=== PATIENT | female | born 1990 | race Caucasian/White ===

== ENCOUNTER 2019-01-11 18:35 | Emergency (ER) | payer OTHER ==
[~2019-01-11] VITALS: Ht 162.6 cm; Wt 70.3 kg
[2019-01-11 18:35] VITALS: BP 155/97
--- NOTE | 2019-01-11 18:35 | NUR ---
ARRIVAL: 28 YEAR OLD FEMALE BROUGHT INTO ER BY [facility]. SUICIDE ATTEMPT, APPROX 4 INCH LACERATION TO LEFT LATERAL FORARM. [facility] [employer] WITH PATIENT.
[2019-01-11 19:03] VITALS: BP 155/97
[2019-01-11 19:17] VITALS: BP 148/97
[2019-01-11 19:21] LABS: BILIRUBIN,URINE NEGATIVE (NEGATIVE); UROBILINOGEN,URINE NORMAL (NEGATIVE)
[2019-01-11 19:24] LABS: APPEARANCE,URINE CLEAR (CLEAR); UA COLOR STRAW (YELLOW)
[2019-01-11] MEDS ORDERED: LIDOCAINE 1% VIAL ONE (19:31)
[2019-01-11 19:34] LABS: BASOPHIL % 0.4 % (0.0-0.2); EOSINOPHIL # 0.1 10^3/uL (0.0-0.2); EOSINOPHIL % 1.1 % (0.0-5.0); LYMPHOCYTES # 2.6 10^3/uL (1.0-4.8); MEAN CORP HGB 31.6 pg (26-34); MONOCYTES # 0.5 10^3/uL (0.3-0.8); MONOCYTES % 5.6 % (5.0-12.0); NEUTROPHIL # 4.9 10^3/uL (1.8-7.7); NEUTROPHILS % 60.2 % (41.0-85.0); RED CELL DISTRIBUTION WIDTH 12.1 % (11.5-14.5)
--- NOTE | 2019-01-11 19:43 | PCM.EKG ---
[facility] Test Date: 2019-01-11 Test Time: 19:44:38 Pat Name: CATALINA BARFIELD Department: [id number] Room: Gender: F Practical Nurse: AURA : 1990 Requested By: LIZBETH AYALA Order Number: [id number] Reading MD: Jamarcus Paniagua Measurements Intervals [place] Rate: 87 P: 81 [place]: 176 QRS: 95 QRSD: 86 T: 67 QT: 342 QTc: 411 Interpretive Statements Normal sinus rhythm Normal ECG No previous ECG available for comparison Electronically Signed On 01-25-2019 10:47:01 CDT by Jamarcus Paniagua Please click the below link to view image of tracing.
--- NOTE | 2019-01-11 19:45 | ER.PDOC ---
General Chief Complaint: Suicide Attempt Stated Complaint: SI Time seen by MD: 19:20 Source: patient Exam Limitations: no limitations History of Present Illness Initial Comments pt state she has been having suicidal thoughts , which are gone now , pt states she lacerated her L wrist and is UTD on her tetanus , pt denies any HI , visual or auditory hallucinations Timing/Duration: this afternoon, gone now Severity: moderate Associated Symptoms: Suicidal Thoughts Mechanism: Incised/Abraded Wrist Prior symptoms/Treatment: Similar symptoms previous Past Medical History Medical History: no pertinent history Surgical History: cholecystectomy LMP (females 10-50): 1 month Social History Smoking: non-smoker Alcohol Use: heavy Drug Use: none Physical Exam General Appearance: No acute distress (crying) EENT: PERRLA, EOM's intact Neck: Non-Tender, Full Range of Motion Respiratory: chest non-tender, lungs clear, normal breath sounds, no respiratory distress Cardiovascular: Normal Peripheral Pulses, Regular Rate, Rhythm, No Edema Gastrointestinal: Normal Bowel Sounds, No Organomegaly, No Pulsatile Mass, Non Tender, Absent bowel sounds Extremities: Normal Range of Motion, Other (Lt wrist laceration noted ) Neurological/Psychiatric: 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, 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 as Tested Appearance/Memory/Insight: Appropriate Appearance Behavior/Eye Contact/Speech: Cooperative, Normal Speech Thoughts/Hallucinations: Normal Thought Pattern, No Apparent Hallucination, Auditory Hallucinations Skin: Normal Color, Warm/Dry ED LACERATION WOUND REPAIR # of Wounds/Lacerations Presen: 1 Wound Location & Length (Requi: L forearm Wound Length (cm): 6 Wound cleaned: betadine Distal NVT: neuro intact Anesthesia type: local (lidocaine 1% ) Anesthesia: 1% Lidocaine Wound's Depth, Shape: superficial Wound Explored: clean Tendon Intact: Yes Wound Repaired With: sutures Suture Size/Type: 4:0, ethilon Suture Style: interupted Number of Sutures: 8 Sterile Dressing Applied?: Yes Results/Orders Results/Orders Orders - LIZBETH AYALA MD Cbc With Auto Diff (01/11/19 19:17) Comprehensive Metabolic Panel (01/11/19 19:17) Creatine Kinase (01/11/19 19:17) Troponin I (01/11/19 19:17) Urinalysis (01/11/19 19:17) Salicylate(Ml) (01/11/19 19:17) Acetaminophen(Ml) (01/11/19 19:17) Alcohol(Ml) (01/11/19 19:17) Hcg, Quantitative (01/11/19 19:17) Ekg-Routine (01/11/19 19:17) Drug Screen Medical(Ml) (01/11/19 19:17) Lidocaine Hcl (Lidocaine 1% Vial) (01/11/19 19:31) Acetaminophen (Tylenol) (01/11/19 23:49) Acetaminophen (Tylenol) (01/11/19 23:51) Vital Signs Date Time Temp Pulse Resp B/P (MAP) Pulse Ox O2 Delivery O2 Flow Rate FiO2 01/12/19 01:05 98.3 80 16 120/76 (91) Room Air 01/11/19 22:51 102 18 135/85 (102) Room Air 01/11/19 20:18 103 18 140/89 (106) Room Air 01/11/19 19:17 98.1 113 20 148/97 (114) Room Air 01/11/19 19:03 98.1 106 20 155/97 (116) Room Air 01/11/19 18:35 98.1 106 20 98 Room Air 01/11/19 18:35 98.1 106 20 155/97 (116) 98 Room Air Administered Medications Medications (Trade) Dose Ordered Sig/Adiel Route PRN Reason Start Time Stop Time Status Last Admin Dose Admin Acetaminophen (Tylenol) 1,000 mg STAT STAT PO 01/11/19 23:51 01/11/19 23:52 DC 01/11/19 23:53 1,000 MG Laboratory Tests Test 01/11/19 19:10 01/11/19 19:26 Urine Collection Type VOID Urine Color STRAW (YELLOW) Urine Appearance CLEAR (CLEAR) Urine Bilirubin NEGATIVE MG/DL (NEGATIVE) Urine Ketones NEGATIVE (NEGATIVE) Urine Specific [place] 1.005 (1.005-1.035) Urine pH 6 (5.0-6.0) Urine Protein NEGATIVE (NEGATIVE) Urine Urobilinogen NORMAL (NEGATIVE) Urine Nitrate NEGATIVE (NEGATAIVE) Urine Leukocyte Esterase NEGATIVE (NEGATIVE) Urine Blood NEGATIVE (NEGATIVE) Urine Glucose NORMAL (NEGATIVE) Urine Opiates, Qualitative NEGATIVE ng/mL (CUT-OFF:300) Urine Methadone, Qualitative NEGATIVE ng/mL (CUT-OFF:300) Urine Amphetamine Qualitative NEGATIVE ng/mL (CUTOFF:1000) Urine Barbiturates, Qualitative NEGATIVE ng/mL (CUT-OFF:200) Urine Phencyclidine Screen NEGATIVE ng/mL (CUT-OFF:25) Urine MDMA (Ecstasy), Qualitative NEGATIVE ng/mL (CUT-OFF:300) Urine Benzodiazepines Screen NEGATIVE ng/mL (CUT-OFF:200) Urine Cocaine Qualitative NEGATIVE ng/mL (CUT-OFF:300) Ur Tetrahydrocannabinol (THC) Scrn NEGATIVE ng/mL (CUT-OFF:50) White Blood Count 8.2 10^3/uL (4.5-11.0) Red Blood Count 4.74 10^6/uL (4.00-5.20) Hemoglobin 15.0 g/dL (12.0-15.0) Hematocrit 41.5 % (36.0-46.0) Mean Corpuscular Volume 87.6 fL (78-100) Mean Corpuscular Hemoglobin 31.6 pg (26-34) Mean Corpuscular Hemoglobin Concent 36.1 g/dL (33-37) Red Cell Distribution Width 12.1 % (11.5-14.5) Platelet Count 417 10^3/uL (150-400) H Mean Platelet Volume 9.9 fL (7.8-11.0) Neutrophils (%) (Auto) 60.2 % (41.0-85.0) Lymphocytes (%) (Auto) 32.0 % (24.0-44.0) Monocytes (%) (Auto) 5.6 % (5.0-12.0) Neutrophils # (Auto) 4.9 10^3/uL (1.8-7.7) Lymphocytes # (Auto) 2.6 10^3/uL (1.0-4.8) Monocytes # (Auto) 0.5 10^3/uL (0.3-0.8) Absolute Immature Granulocyte (auto 0.06 10^3 u/L (0-2) Immature Granulocytes % 0.70 % (0.00-0.50) H Eosinophils % 1.1 % (0.0-5.0) Basophils % 0.4 % (0.0-0.2) H Basophils # 0.0 10^3/uL (0.0-0.1) Eosinophil Count 0.1 10^3/uL (0.0-0.2) Sodium Level 146 mmol/L (132-145) H Potassium Level 3.9 mmol/L (3.6-5.2) Chloride Level 109.0 mmol/L (96-109) Carbon Dioxide Level 23.6 mmol/L (20.0-32) Anion Gap 17.3 Blood Urea Nitrogen 8 mg/dL (7-18) Creatinine 0.85 mg/dL (0.59-1.40) Estimated GFR () 97.8 (>/=60) BUN/Creatinine Ratio 9.0 Glucose Level 106 mg/dL (70-110) Calcium Level 9.4 mg/dL (8.4-10.5) Total Bilirubin 0.2 mg/dL (0.2-1.0) Aspartate Amino Transferase (AST) 18 U/L (0-35) Alanine Aminotransferase (ALT) 37 U/L (12-78) Alkaline Phosphatase 72 U/L (50-136) Total Creatine Kinase 71 U/L (26-192) Troponin I < 0.02 ng/mL (0.00-0.05) Total Protein 7.9 g/dL (6.4-8.2) Albumin 4.2 g/dL (3.4-5.0) Globulin 3.7 Human Chorionic Gonadotropin, Quant < 5 mIU/mL Salicylates Level < 2.8 mg/dL (2.8-20.0) L Acetaminophen Level < 2 ug/mL (10-30) L Serum Alcohol 168 mg/dL (0-50) H Progress Progress labs reviewed , pt is medically cleared , placement is pending at this time @[id number] Notified by Nurse pt will not be a direct admit to the [facility] but the will see ans eval pt , she will be DC to the custody of [place] [employer] to be taken to the [facility] for further eval EKG/XRAY/CT/US EKG: NSR (normal EKG ), [place] (176) Departure Time of Disposition: 01:38 Disposition: 01 HOME, SELF-CARE Impression: Primary Impression: Suicidal ideation Additional Impression: Acute alcoholic intoxication in alcoholism Condition: Stable Additional Instructions: pt is Dc to custody of [place] [employer] and will be taken to the [facility] for further eval Duration or Time Spent with Pa: 20 mins Problem Qualifiers Additional Impression: Acute alcoholic intoxication in alcoholism Complication of substance-induced condition: with unspecified complication Qualified Codes: F10.229 - Alcohol dependence with intoxication, unspecified LIZBETH AYALA MD Jan 11, 2019 19:44
--- NOTE | 2019-01-11 19:47 | NUR ---
Update Patient is tearful at this time. Pt. states voices that she does not want to be along. Jana Mirror Installer is sitting in room with patient at this time.
--- NOTE | 2019-01-11 19:49 | NUR ---
Crisis Line This nurse on phone with crisis line for [facility] interview
--- NOTE | 2019-01-11 19:55 | NUR ---
[facility] Pt is interviewing with [facility]
[2019-01-11 19:59] LABS: ALANINE AMINOTRANSFERASE(ML) 37 U/L (12-78); ALKALINE PHOSPHATASE 72 U/L (50-136); ASPARTATE AMINO TRANSFERASE 18 U/L (0-35); CALCIUM 9.4 mg/dL (8.4-10.5); CARBON DIOXIDE 23.6 mmol/L (20.0-32); GLUCOSE 106 mg/dL (70-110)
--- NOTE | 2019-01-11 19:59 | NUR ---
Update Dr. Man in pts. room suturing patient
[2019-01-11 20:18] VITALS: BP 140/89
--- NOTE | 2019-01-11 21:13 | NUR ---
TPC TPC states that pt meets criteria for the [facility]. She will send information to the [facility].
[2019-01-11 22:51] VITALS: BP 135/85
--- NOTE | 2019-01-11 23:04 | NUR ---
[facility] states that have recieved the information at the nurse will look over it and she will get back to us.
[2019-01-11] MEDS ORDERED: TYLENOL PO ONE (23:49)
[2019-01-11] MEDS ORDERED: TYLENOL PO STA (23:51)
--- NOTE | 2019-01-11 23:53 | NUR ---
Judi Called to check on update at Judi. Josie in access states that nurse has looked over the labs and a block sealer will look at the papework soon
--- NOTE | 2019-01-12 00:40 | NUR ---
Judi Galindo from [facility] [employer] states that the doctor is looking at the information and they will let us know as soon as he gets done with the paperwork
[2019-01-12 01:05] VITALS: BP 120/76
--- NOTE | 2019-01-12 01:23 | NUR ---
Judi Galindo from [facility] called to notify us that they will not be direct admitting patient. Josie states that if the officers want to bring the patient over and be evaluated by the [facility] that they would accept her for evaluation.
--- NOTE | 2019-01-12 01:27 | NUR ---
Update [place] field health officer is going to take patient to [facility] for further evaluation.
[2019-01-12 01:45] VITALS: BP 124/74
== END 2019-01-12 01:59 | disposition short-term general hospital (02) ==
LOC: EDBD 18:35 → ER 18:35
DX: S51.812A Laceration without foreign body of left forearm, initial encounter (principal); R45.851 Suicidal ideations; F10.229 Alcohol dependence with intoxication, unspecified; Z90.49 Acquired absence of other specified parts of digestive tract; Y90.6 Blood alcohol level of 120-199 mg/100 ml; X78.1XXA Intentional self-harm by knife, initial encounter; Y93.89 Activity, other specified; Y92.89 Other specified places as the place of occurrence of the external cause; Y99.8 Other external cause status
CPT/HCPCS: 12002; 36415; 80053; 80299 ×2; 80307; 80320; 81002; 82550; 84484; 84702; 85025; 93005; 99285; A9150; J2001